=== PATIENT | female | born 1970 | race Caucasian/White ===

== ENCOUNTER 2024-03-16 06:05 | Day surgery (SDC) | payer OTHER ==
[~2024-03-16] VITALS: Ht 170.2 cm; Wt 134.4 kg
[~2024-03-16 06:05] MED LIST: AMLO1TAB25 PO; BRIN10TA4 PO; CYMB60CA4 PO; FURO40TA2 PO; IBUP1TAB7 PO; OMEP40CA4 PO; OXYB15TA14 PO; OXYC7.5T3 PO
[2024-03-16] MEDS: LR 1,000 ML IV SCH (07:07)
[2024-03-16] MEDS ORDERED: MIDAZOLAM INJ 2MG/2ML VIAL As Ordered ONE (07:07)
[2024-03-16] MEDS ORDERED: fentaNYL 100 MCG/2 ML INJECTION As Ordered ONE (07:08)
[2024-03-16] MEDS ORDERED: ROCURONIUM BROMIDE 50MG/5ML VIAL As Ordered ONE (07:10)
[2024-03-16] MEDS ORDERED: propofoL 200 MG/20 ML VIAL As Ordered ONE (07:10)
[2024-03-16] MEDS ORDERED: LIDOCAINE 2% 100MG/5ML SDV (FOR ANES.) As Ordered ONE (07:10)
[2024-03-16] MEDS ORDERED: ONDANSETRON 4MG 2ML VIAL As Ordered ONE (07:11)
[2024-03-16] MEDS ORDERED: SUGAMMADEX SODIUM 500 MG/5 ML VIAL (BRIDION) As Ordered ONE (07:11)
[2024-03-16] MEDS ORDERED: ACETAMINOPHEN 1000MG 100ML IV BAG As Ordered ONE (07:16)
[2024-03-16] MEDS ORDERED: CHLORHEXIDINE GLUCONATE 0.12 % 15ML UDC (PERIDEX ORAL RINSE) As Ordered ONE (07:19)
[2024-03-16] MEDS ORDERED: LIDOCAINE 2% W/ EPINEPHRINE 1.7 ML DENTAL INJ As Ordered ONE (07:20)
[2024-03-16] MEDS: OXYMETAZOLINE 0.05% NASAL SPRAY (AFRIN) As Ordered ONE (07:30)
[2024-03-16] MEDS: AMPICILLIN SOD/SULBACTAM SOD 3 GM in D5W MINI-BAG PLUS 100 ML IV ONE (07:37)
[2024-03-16] MEDS ORDERED: dexmedeTOMIDine (4MCG/ML)200MCG/50ML BTL (PRECEDEX) As Ordered ONE (08:01)
[2024-03-16] MEDS ORDERED: KETOROLAC 60MG 2ML VIAL As Ordered ONE (08:25)
[2024-03-16] MEDS ORDERED: LR 1,000 ML IV SCH (08:35)
[2024-03-16] MEDS ORDERED: fentaNYL 100 MCG/2 ML INJECTION IV PRN (08:35)
[2024-03-16] MEDS: HYDROMORPHONE HCL 0.5 MG/ 0.5 ML SYRINGE IV PRN (08:51)
[2024-03-16] MEDS: ONDANSETRON 4MG 2ML VIAL IV PRN (08:51)
[2024-03-16] MEDS: oxyCODONE 5MG TAB PO PRN (08:51)
[2024-03-16 09:38] VITALS: BP 130/71; TEMP 98.2; O2SAT 98
== END 2024-03-16 09:41 | disposition home or self-care (01) ==
LOC: M SDC 06:05
PROVIDERS: ATTEND Dentist
DX: K02.9 Dental caries, unspecified (principal); F40.232 Fear of other medical care; G47.30 Sleep apnea, unspecified; Z88.1 Allergy status to other antibiotic agents; Z79.899 Other long term (current) drug therapy; F17.210 Nicotine dependence, cigarettes, uncomplicated
CPT/HCPCS: 88300; D7140; D7210; J0131; J0295; J1100; J1170; J1885; J2250; J2405; J3010